=== PATIENT | female | born 1995 | race Caucasian/White ===

== ENCOUNTER 2018-09-22 23:21 | Emergency (ER) | payer OTHER, MEDICAID ==
[~2018-09-22] VITALS: Ht 175.3 cm; Wt 92.1 kg
[2018-09-22 23:39] VITALS: BP 119/62
--- NOTE | 2018-09-22 23:45 | NUR ---
PT AMBULATED TO THE RESTROOM AND OUT TO LOBBY, VSS
[2018-09-23 00:22] LABS: APPEARANCE,URINE SL CLOUDY (CLEAR); BILIRUBIN,URINE 1+ (NEGATIVE); BLOOD, URINE 2+ (NEGATIVE); COLOR,URINE YELLOW (YELLOW); LEUKOCYTE ESTERASE ,URINE NEGATIVE (NEGATIVE); NITRITE, URINE NEGATIVE (NEGATIVE); UGLUCOSE NEGATIVE (NEGATIVE)
[2018-09-23 00:44] LABS: CALCIUM OXALATE CRYSTALS,UR 50-70 /HPF (None Seen); RBC,URINE 11-20 (MOD) /HPF (0-5); WBC,URINE 0-5 /HPF (0-5)
--- NOTE | 2018-09-23 01:29 | NUR ---
PT AMBULATED TO BED 11
--- NOTE | 2018-09-23 01:40 | NUR ---
PT TO ED WITH C/O ABDOMINAL PAIN, N/V/D X4 DAYS. NO FEVER. PT IS 18 WEEKS DUE FEBRUARY 25. . DENIES VAGINAL BLEEDING. PT REPORTED MILD CRAMPING. ABD IS NON TENDER, NO DISTENTION NOTED. PT PLACED INTO BED, PENDING MD BUSCH.
--- NOTE | 2018-09-23 01:56 | NUR ---
Dr. Morocho evaluating patient at bedside.
[2018-09-23 02:16] VITALS: BP 119/62
--- NOTE | 2018-09-23 02:16 | NUR ---
Patient discharged with v/s stable. Written and verbal after care instructions given and explained. Patient alert, oriented and verbalized understanding of instructions. Ambulatory with steady gait. All questions addressed prior to discharge. ID band removed. Patient advised to follow up with PMD. Rx of ZOFRAN WAS given. Patient educated on indication of medication including possible reaction and side effects. Opportunity to ask questions provided and answered. PT STATED SHE FELT BETTER AND NO LONGER HAD NAUSEA. FHT WAS 140. PT HAD NO PAIN.
== END 2018-09-23 02:16 | disposition home or self-care (01) ==
LOC: MED 23:21
DX: O26.892 Other specified pregnancy related conditions, second trimester (principal); R10.13 Epigastric pain; R19.7 Diarrhea, unspecified; O21.9 Vomiting of pregnancy, unspecified; Z3A.18 18 weeks gestation of pregnancy
CPT/HCPCS: 81001; 81025; 99283